=== PATIENT | female | born 1950 | race Caucasian/White ===

== ENCOUNTER 2019-09-14 14:00 | Outpatient (RCR) | payer MEDICARE, OTHER | END 2019-09-27 | disposition still patient (30) | LOC: PT | DX: R26.89 Other abnormalities of gait and mobility (principal) ==

== ENCOUNTER 2021-07-09 10:15 | Outpatient (RCR) | payer MEDICARE, OTHER | END 2021-10-07 | disposition home or self-care (01) | LOC: PT | DX: M54.16 Radiculopathy, lumbar region (principal) ==

== ENCOUNTER 2021-12-25 12:39 | Outpatient (RCR) | payer MEDICARE, OTHER | END 2022-01-12 | disposition home or self-care (01) | LOC: PT | DX: M25.512 Pain in left shoulder (principal); G89.29 Other chronic pain; M25.562 Pain in left knee; M25.551 Pain in right hip ==